=== PATIENT | female | born 1960 | race African-American/Black ===

== ENCOUNTER 2018-01-31 00:24 | Emergency (ER) | payer MEDICARE, OTHER ==
[2018-01-31 00:50] LABS: ADD MAN DIFF? NO
[2018-01-31 00:51] LABS: BASO % 1 % (0-3); EOS # 0.1 x10^3/uL (0.0-0.7); EOS % 1 % (0-3); HEMATOCRIT 40.8 % (36.0-47.0); HEMOGLOBIN 13.7 g/dL (12.0-15.5); LYMPH # 2.3 x10^3/uL (1.0-4.8); LYMPH % 36 % (24-48); MEAN CORPUSCULAR HEMOGLOBIN 30 pg (25-35); MEAN CORPUSCULAR HGB CONC 34 g/dL (31-37); MEAN CORPUSCULAR VOLUME 90 fL (79-100); MONO # 0.4 x10^3/uL (0.0-1.1); MONO % 6 % (0-9); NEUT # 3.7 x10^3uL (1.8-7.7); NEUT % 56 % (31-73); PLATELET COUNT 211 x10^3/uL (140-400); RED BLOOD COUNT 4.53 x10^6/uL (3.50-5.40); RED CELL DISTRIBUTION WIDTH 13.8 % (11.5-14.5); WHITE BLOOD COUNT 6.5 x10^3/uL (4.0-11.0)
[2018-01-31] MEDS: ASPIRIN CHEWABLE 81 MG TABLET. PO (00:53)
[2018-01-31] MEDS: NITROGLYCERIN OINT 1 GM PACKET. TP (00:55)
[2018-01-31 01:10] LABS: ANION GAP 5 (6-14); BLOOD UREA NITROGEN 11 mg/dL (7-20); BUN/CREATININE RATIO 11 (6-20); CALCIUM 8.9 mg/dL (8.5-10.1); CARBON DIOXIDE 31 mmol/L (21-32); CHLORIDE 99 mmol/L (98-107); GFR 69.1; GLUCOSE 321 mg/dL (70-99); POTASSIUM 4.8 mmol/L (3.5-5.1); SODIUM 135 mmol/L (136-145)
[2018-01-31 01:12] LABS: INR 1.1 (0.8-1.1); PROTHROMBIN TIME PATIENT 13.5 SEC (11.7-14.0)
[2018-01-31 01:14] LABS: ALBUMIN 2.6 g/dL (3.4-5.0); ALBUMIN/GLOBULIN RATIO 0.5 (1.0-1.7); ALK PHOS 94 U/L (46-116); ALT (SGPT) 30 U/L (14-59); AST (SGOT) 45 U/L (15-37); LIPASE 259 U/L (73-393); TOTAL BILIRUBIN 0.4 mg/dL (0.2-1.0); TOTAL PROTEIN 7.6 g/dL (6.4-8.2)
[2018-01-31 01:22] LABS: NT-PRO BNP 28 pg/mL (0-124)
[2018-01-31 01:22] LABS: CKMB INDEX 0.5 % (0-4); CREATINE KINASE 214 U/L (26-192)
== END 2018-01-31 01:31 | disposition left against medical advice (07) ==
LOC: ER 00:24
DX: R07.89 Other chest pain (principal); F41.9 Anxiety disorder, unspecified; E78.00 Pure hypercholesterolemia, unspecified; E78.5 Hyperlipidemia, unspecified; J45.909 Unspecified asthma, uncomplicated; I10 Essential (primary) hypertension; E11.9 Type 2 diabetes mellitus without complications; Z90.49 Acquired absence of other specified parts of digestive tract; Z90.710 Acquired absence of both cervix and uterus
CPT/HCPCS: 36415; 71045; 80053; 82553; 83690; 83880; 84484; 85025; 85610; 93005; 96374; 99285-25; J2060

== ENCOUNTER 2018-05-23 21:03 | Emergency (ER) | payer MEDICARE, OTHER ==
[~2018-05-23] VITALS: Ht 154.9 cm; Wt 166.9 kg
[~2018-05-23 21:03] MED LIST: LEVO750T31 PO
[2018-05-23 22:43] VITALS: BP 155/80
[2018-05-23] MEDS ORDERED: ONDANSETRON ODT 4 MG TAB.RAPDIS. PO ONE (23:00)
[2018-05-23] MEDS ORDERED: MAGNESIUM CITRATE 296 ML SOLUTION. PO ONE (23:00)
--- NOTE | 2018-05-23 23:24 | PHYS DOC ---
Past Medical History Past Medical History: Anxiety, Asthma, Diabetes-Type I, High Cholesterol, Hypertension Additional Past Medical Histor: OBESITY, SLEEP APNEA Past Surgical History: Cholecystectomy, Hysterectomy, Other Additional Past Surgical Histo: hernia Alcohol Use: Rarely Drug Use: None Adult General Chief Complaint Chief Complaint: CONSTIPATION HPI HPI Patient is a 58 year old female who presents with last bowel movement 3 days ago and states that she does not have a constipation history. Patient denies any nausea or vomiting. Patient states she has no abdominal pain but at times that she will have slight abdominal cramping. Patient states she has not been taking any medications for her constipation. Patient states she feels like she has to have a bowel movement but cannot get it out. Vital signs are 148/63, 20 respirations, 98.1, 95% on room air, 86 heart rate. History of diabetes, hypertension, asthma, cholecystectomy. Review of Systems Review of Systems Constitutional: Denies fever or chills [] Eyes: Denies change in visual acuity, redness, or eye pain [] HENT: Denies nasal congestion or sore throat [] Respiratory: Denies cough or shortness of breath [] Cardiovascular: No additional information not addressed in HPI [] GI: Denies abdominal pain, nausea, vomiting, bloody stools or diarrhea. Constipation [] : Denies dysuria or hematuria [] Musculoskeletal: Denies back pain or joint pain [] Integument: Denies rash or skin lesions [] Neurologic: Denies headache, focal weakness or sensory changes [] Endocrine: Denies polyuria or polydipsia [] All other systems were reviewed and found to be within normal limits, except as documented in this note. Current Medications Current Medications Current Medications Medications (Trade) Dose Ordered Sig/Laney Start Time Stop Time Status Last Admin Dose Admin Magnesium Citrate (Citroma) 296 ml 1X ONCE 05/23/18 23:00 05/23/18 23:01 DC Ondansetron HCl (Zofran Odt) 4 mg 1X ONCE 05/23/18 23:00 05/23/18 23:01 DC Allergies Allergies Allergies Coded Allergies Type Severity Reaction Last Updated Verified No Known Drug Allergies 05/07/15 No Physical Exam Physical Exam Constitutional: Well developed, well nourished, no acute distress, non-toxic appearance. [] HENT: Normocephalic, atraumatic, bilateral external ears normal, oropharynx moist, no oral exudates, nose normal. [] Eyes: PERRLA, EOMI, conjunctiva normal, no discharge. [] Neck: Normal range of motion, no tenderness, supple, no stridor. [] Cardiovascular:Heart rate regular rhythm, no murmur [] Lungs & Thorax: Bilateral breath sounds clear to auscultation [] Abdomen: Bowel sounds normal, soft, no tenderness, no masses, no pulsatile masses. [] Skin: Warm, dry, no erythema, no rash. [] Back: No tenderness, no CVA tenderness. [] Extremities: No tenderness, no cyanosis, no clubbing, ROM intact, no edema. [] Neurologic: Alert and oriented X 3, normal motor function, normal sensory function, no focal deficits noted. [] Psychologic: Affect normal, judgement normal, mood normal. [] Current Patient Data Vital Signs Vital Signs Date Time Temp Pulse Resp B/P (MAP) Pulse Ox O2 Delivery O2 Flow Rate FiO2 05/23/18 21:24 98.1 86 20 148/63 (91) 94 Room Air 98.1 EKG EKG [] Radiology/Procedures Radiology/Procedures KUB Impressions: CONSTIPATION. NO ACUTE FINDINGS. Course & Med Decision Making Course & Med Decision Making Patient is a 58 year old female who presents with last bowel movement 3 days ago and states that she does not have a constipation history. Patient denies any nausea or vomiting. Patient states she has no abdominal pain but at times that she will have slight abdominal cramping. Patient states she has not been taking any medications for her constipation. Patient states she feels like she has to have a bowel movement but cannot get it out. Vital signs are 148/63, 20 respirations, 98.1, 95% on room air, 86 heart rate. History of diabetes, hypertension, asthma, cholecystectomy. Abdomen is soft and nontender and there are no masses felt. The patient is very overweight. Skin is pink warm and dry mucous membranes are moist. There is no fecal impaction. Patient denies any urinary symptoms. Heart rate regular and no murmur. Lungs are clear to auscultation in all lobes. Patient is given a dose of mag citrate and Zofran in the ED. KUB reads constipation with no acute findings. Xray is read by Dr Jhaveri. Patient is sent home with a prescription for another dose of Mag Citrate and Zofran ODT and should follow up with her primary care on Saturday. [] Dragon Disclaimer Dragon Disclaimer This electronic medical record was generated, in whole or in part, using a voice recognition dictation system. Departure Departure Impression: Primary Impression: Constipation Disposition: HOME, SELF-CARE Condition: STABLE Referrals: UNKNOWN PCP NAME (PCP) Patient Instructions: Constipation, Adult Additional Instructions: Follow up with your primary care. Take medications as prescribed. Scripts Ondansetron (ONDANSETRON ODT) 4 Mg Tab.rapdis 1 TAB PO PRN Q6-8HRS, #16 TAB Prov: YULI CHAUDHARI APRN 05/23/18 Magnesium Citrate (MAGNESIUM CITRATE) 296 Ml Solution 296 ML PO ONCE, #296 ML Prov: YULI CHAUDHARI APRN 05/23/18 Problem Qualifiers Primary Impression: Constipation Constipation type: unspecified constipation type Qualified Codes: K59.00 - Constipation, unspecified YULI CHAUDHARI APRN May 23, 2018 23:24
[2018-05-23] MEDS ORDERED: ONDA4TAB12 PO (23:29)
[2018-05-23] MEDS ORDERED: MAGN296S9 PO (23:29)
--- NOTE | 2018-05-23 23:53 | RAD ---
Indication: Constipation TECHNIQUE: AP views of the abdomen and pelvis COMPARISON: None FINDINGS: Large amount of colonic stool burden seen. No abnormally dilated bowel loops. Calcific density projecting over the expected location of the right kidney may suggest a renal stone. Visualized bones are within normal limits. IMPRESSION: Large amount of colonic stool burden, patient may be constipated. Questionable right renal stone. Electronically signed by: Harlan Ulloa DO (05/23/2018 11:50 PM) [facility]
== END 2018-05-23 23:48 | disposition home or self-care (01) ==
LOC: ER 21:03
DX: K59.00 Constipation, unspecified (principal); E78.00 Pure hypercholesterolemia, unspecified; E11.9 Type 2 diabetes mellitus without complications; I10 Essential (primary) hypertension; J45.909 Unspecified asthma, uncomplicated; F41.9 Anxiety disorder, unspecified; Z98.890 Other specified postprocedural states; Z90.49 Acquired absence of other specified parts of digestive tract; Z90.710 Acquired absence of both cervix and uterus; E66.9 Obesity, unspecified; Z68.44 Body mass index [BMI] 60.0-69.9, adult
CPT/HCPCS: 74018; 99284; Q0162

== ENCOUNTER 2021-04-09 16:21 | Emergency (ER) | payer OTHER ==
[~2021-04-09] VITALS: Ht 154.9 cm; Wt 150.0 kg
[~2021-04-09 16:21] MED LIST changes: +ATOR10TA60 PO; +BETA15CR4 TP; +CHLO25TA2 PO; +CIPR250T30 PO; +EXEN2AUT SQ; +FLUT16SP NS; +HYDR-2761 PO; +INSU100V5 SQ; +KETO15CR2 TP; +LISI20TA18 PO; +MAGN296S68 PO; +METR500T PO; +NPH,100V SQ; +ONDA4TAB12 PO; +PANT40TA77 PO; +PROAIR RESPICL90 MCG INH
[2021-04-09 17:00] VITALS: BP 136/62
--- NOTE | 2021-04-09 17:26 | PHYS DOC ---
Past Medical History Past Medical History: Anxiety, Asthma, Diabetes-Type I, High Cholesterol, Hypertension Additional Past Medical Histor: OBESITY, SLEEP APNEA (JULES WILSON) Past Surgical History: Cholecystectomy, Hysterectomy, Other Additional Past Surgical Histo: hernia (JULES WILSON) Smoking Status: Never Smoker Alcohol Use: Occasionally Drug Use: None (JULES WILSON) General Adult EDM: Chief Complaint: MUSCLE SPASM/CRAMP Problems: (1) Muscle cramp (JULES WILSON) HPI: HPI: Patient is a 61 year old female with history of diabetes, hypertension, asthma, high cholesterol who presents with 4-day history of right-sided low back pain. Patient states that she was in the bathroom, and stood up and the pain get began. She states that it is a intermittent pressure 10/10 in the department. She states that movement makes her pain worse. She has taken Tylenol at home, which did not improve her symptoms. She denies trauma or injury. Patient reports a history of muscle spasms in her low back. She has an additional complaint of right upper extremity pain that just started in the department. Patient reports she has not left her house in 4 months. Patient also mentions skin wounds to the underside of her pannus. She states there used to be 3 and they were much larger. She states her daughter helps her clean and dress them at home and they do not bother her so long as there is a gauze dressing on them. Patient has no other complaints at this time. (JULES WILSON) Review of Systems: Review of Systems: Constitutional: Denies fever or chills. Respiratory: Denies cough or shortness of breath. Cardiovascular: Denies chest pain or edema. GI: Denies abdominal pain, nausea, vomiting, bloody stools or diarrhea. : Reports dysuria. Musculoskeletal: Denies back pain or joint pain. Integument: Denies rash. (JULES WILSON) Heart Score: C/O Chest Pain: No (JULES WILSON) Allergies: Allergies: Allergies Coded Allergies Type Severity Reaction Last Updated Verified No Known Drug Allergies 05/07/15 No (JULES WILSON) Physical Exam: PE: Constitutional: Morbidly obese, well groomed, no acute distress, non-toxic appearance. Neck: Normal range of motion, no tenderness, supple, no stridor. Cardiovascular:Heart rate regular rhythm, no murmur. Lungs & Thorax: Bilateral breath sounds clear to auscultation. Back: Tender to palpation low back through buttock. Exam somewhat limited due to patient's body habitus and pain with movement. Skin: Two small (2cm and 1cm) diameter pressure ulcers on underside of pannus on right side. Healing well without erythema or discharge. Extremities: No tenderness, no cyanosis, no clubbing, ROM intact. Extremely poor hygiene of the feet with dirt caked to the soles. Neurologic: Alert and oriented X 3, normal motor function, normal sensory function, no focal deficits noted. (JULES WILSON) Current Patient Data: Labs: Laboratory Tests Test 04/09/21 18:32 Urine Collection Type Void Urine Color Melissa Urine Clarity Cloudy Urine pH 5.5 (<5.0-8.0) Urine Specific [place] >=1.030 (1.000-1.030) Urine Protein 30 mg/dL (NEG-TRACE) Urine Glucose (UA) Negative mg/dL (NEG) Urine Ketones (Stick) Trace mg/dL (NEG) Urine Blood Small (NEG) Urine Nitrite Positive (NEG) Urine Bilirubin Small (NEG) Urine Urobilinogen Dipstick 1.0 mg/dL (0.2 mg/dL) Urine Leukocyte Esterase Large (NEG) Urine RBC 6-10 /HPF (0-2) Urine WBC Tntc /HPF (0-4) Urine Squamous Epithelial Cells Many /LPF Urine Bacteria Many /HPF (0-FEW) Urine Mucus Mod /LPF Vital Signs: Vital Signs Date Time Temp Pulse Resp B/P (MAP) Pulse Ox O2 Delivery O2 Flow Rate FiO2 04/09/21 17:00 98.6 69 20 136/62 (86) 99 Room Air 98.6 (JULES WILSON) Course & Med Decision Making: Course & Med Decision Making Pertinent Labs and Imaging studies reviewed. (See chart for details) Patient presents with nontraumatic low back pain and history of muscle cramps. I am going to give her IM injection of Toradol and attempt to control her pain and reduce some inflammation. Will reevaluate after med administration. After toradol injection, patient mentioned an area of her skin on the underside of her pannus that she has been caring for at home. Her only request is that they be dressed so as not to make direct contact with her leg. I examined the wound to ensure there are no signs of infection and that they show good healing. The wound will be dressed with nonadhesive gauze in the department. Follow up care was discussed with the patient should they not continue to heal well. She was also given return precautions if the wounds start to show signs of infection. On reevaluation, patient states that her pain is much better. However, she now has additional complaint of UTI symptoms. She states that she "gets them every year," and is having symptoms now. Urine sample will be obtained and sent to t lab. Urinalysis shows UTI. Patient will be discharged with antibiotics and instructions to follow-up with primary care provider regarding recurrent UTI. (JULES WILSON) Course & Med Decision Making I have reviewed and was available for consultation in the emergency department for this patient that was seen by midlevel provider. Agree with plan. Nehmeiah Steve DO (NEHEMIAH STEVE DO) Gallito Disclaimer: Gallito Disclaimer: This electronic medical record was generated, in whole or in part, using a voice recognition dictation system. (JULES WILSON) Departure Departure Impression: Primary Impression: Muscle spasm Additional Impressions: Skin ulceration Qualified Codes: L98.492 - Non-pressure chronic ulcer of skin of other sites with fat layer exposed Urinary tract infection Qualified Codes: N39.0 - Urinary tract infection, site not specified Disposition: 01 HOME / SELF CARE / HOMELESS Condition: STABLE Referrals: KYA COX MD (PCP) Patient Instructions: Back Pain, Adult, [id number], Skin Ulcer, Urinary Tract Infection, [id number] Additional Instructions: Return to the emergency department if your muscle spasms worsen or return, and you cannot manage her pain at home. As discussed, you can set up an appointment with your primary care provider for follow-up care for your skin ulcerations. Continue to have your daughter care for them at home, as they appear to be healing well. If you or your daughter notice any white discharge, increasing redness, or increased pain to the wounds, or if you develop a fever, please return to the emergency department for evaluation. Please be sure to take your full course of antibiotics to treat your UTI. When you do follow-up with your primary care provider, please discuss recurrent UTIs and a plan to prevent them in the future. Scripts Cephalexin (CEPHALEXIN) 500 Mg Tablet 1 TAB PO BID for 7 Days, #14 TAB Take 1 tablet by mouth twice a day for 7 days. Prov: JULES WILSON 04/09/21 JULES WILSON Apr 09, 2021 17:26 NEHEMIAH STEVE DO Apr 09, 2021 19:16
[2021-04-09] MEDS ORDERED: KETOROLAC 30 MG/ML VIAL. IM ONE (17:30)
[2021-04-09 18:41] LABS: BILIRUBIN,URINE SMALL (NEG); CLARITY,URINE CLOUDY; COLOR,URINE AMBER; NITRITE,URINE POSITIVE (NEG); PH,URINE 5.5 (<5.0-8.0); PROTEIN,URINE 30 mg/dL (NEG-TRACE)
[2021-04-09 18:49] LABS: BACTERIA,URINE MANY /HPF (0-FEW); WBC,URINE TNTC /HPF (0-4)
[2021-04-09] MEDS ORDERED: CEPH500T PO (18:59)
== END 2021-04-09 19:35 | disposition home or self-care (01) ==
LOC: ER 16:21
DX: N39.0 Urinary tract infection, site not specified (principal); L98.492 Non-pressure chronic ulcer of skin of other sites with fat layer exposed; M62.838 Other muscle spasm; J45.909 Unspecified asthma, uncomplicated; E10.9 Type 1 diabetes mellitus without complications; E78.00 Pure hypercholesterolemia, unspecified; I10 Essential (primary) hypertension; Z90.710 Acquired absence of both cervix and uterus; Z90.49 Acquired absence of other specified parts of digestive tract
CPT/HCPCS: 81001; 87077; 87086; 87186; 96372; 99284; J1885